=== PATIENT | female | born 1995 | race Native Hawaiian/Other Pacific Islander ===

== ENCOUNTER 2017-11-15 16:36 | Emergency (ER) | payer BC ==
[~2017-11-15] VITALS: Ht 170.2 cm; Wt 72.6 kg
[2017-11-15 18:00] LABS: PLATELET COUNT 254 K/uL (152-353)
[2017-11-15 18:19] LABS: POTASSIUM 3.7 mmol/L (3.6-5.2)
[2017-11-15 19:18] VITALS: BP 111/61; TEMP 97.6
== END 2017-11-15 19:18 | disposition home or self-care (01) ==
LOC: ED 16:36
PROVIDERS: Family Medicine
DX: K21.9 Gastro-esophageal reflux disease without esophagitis (principal); R10.13 Epigastric pain; K29.60 Other gastritis without bleeding
CPT/HCPCS: 36415; 80053; 81000; 81025; 85027; 99283

== ENCOUNTER 2018-07-20 12:53 | Outpatient (CLI) | payer OTHER | END 2018-07-20 20:14 | disposition home or self-care (01) | LOC: MRI 12:53 | DX: R19.09 Other intra-abdominal and pelvic swelling, mass and lump (principal); N83.292 Other ovarian cyst, left side | CPT/HCPCS: A9576 ==